=== PATIENT | female | born 1940 | race Caucasian/White ===

== ENCOUNTER 2016-04-21 16:37 | Emergency (ER) | payer MEDICARE, MEDICAID, OTHER ==
[~2016-04-21] VITALS: Ht 167.6 cm; Wt 60.0 kg
[~2016-04-21 16:37] MED LIST: CALC500T21 PO; DIPH1TAB36 PO; EXEL1.5C OR; RIVA1.5 PO; ROSU5 OR; SERT50 PO; ZOLO25TA PO
[2016-04-21 18:12] VITALS: BP 208/92; PULSE 97; RESP 18; TEMP 98.2; O2SAT 99
[2016-04-21] MEDS ORDERED: TYLE325T PO (18:14)
[2016-04-21] MEDS ORDERED: ZOLO100T PO (18:14)
[2016-04-21] MEDS ORDERED: MELA5CAP2 PO (18:14)
[2016-04-21] MEDS ORDERED: ARIC10TA PO (18:14)
[2016-04-21] MEDS ORDERED: OSCA200T PO (18:14)
[2016-04-21] MEDS ORDERED: MEMA28CA PO (18:14)
[2016-04-21] MEDS ORDERED: ACETAMINOPHEN 325 MG TAB PO ONE ×2 (18:30→20:30)
[2016-04-21 18:46] LABS: AUTOMATED NEUTROPHIL # 4.3 TH/MM3 (1.8-7.7); BASOPHIL # 0.1 TH/MM3 (0-0.2); BASOPHIL % 1.1 % (0.0-2.0); EOSINOPHIL # 0.2 TH/MM3 (0-0.4); EOSINOPHIL % 2.4 % (0.0-4.0); HEMATOCRIT 39.9 % (35.0-46.0); HEMO FLAGS DIFF FINAL; LYMPH % 22.9 % (9.0-44.0); LYMPHOCYTE # 1.5 TH/MM3 (1.0-4.8); MEAN CELL VOLUME 93.6 FL (80.0-100.0); MEAN CORPUSCULAR HEMOGLOBIN 31.5 PG (27.0-34.0); MEAN CORPUSCULAR HGB CONC 33.6 % (32.0-36.0); MONO % 8.5 % (0.0-8.0); NEUT % 65.1 % (16.0-70.0); PLATELET COUNT 224 TH/MM3 (150-450); RED BLOOD COUNT 4.26 MIL/MM3 (4.00-5.30); RED CELL DISTRIBUTION WIDTH 13.4 % (11.6-17.2); WHITE BLOOD COUNT 6.6 TH/MM3 (4.0-11.0)
--- NOTE | 2016-04-21 19:36 | PD ---
HPI Chief Complaint: Psychiatric Symptoms Time Seen by Provider: 19:33 Travel History International Travel<30 days: No Contact w/Intl Traveler<30days: No Traveled to known affect area: No History of Present Illness HPI 75-year-old female that presents to the ED for evaluation of psychiatric illness. Patient has a chronic history of dementia and she is currently living at a [facility]. Patient appears to be very demented. She states that she doesn't remember what she is here that she's having issues secondary to kidney pain and stating that it only many medications at the facility where she stays at. Per fci paperwork she has been taking her medications and she does have a chronic history of dementia. I actually saw this patient in November for evaluation of Pal[place] act after she was found roaming around the neighborhood with no idea who she was. She does appear to be a poor historian. She does not appear to be aggressive. Per Palomo act patient was found to be wandering around the area of the fci. She denies any chest pain. She states that she has some kidney pain which is chronic. Per patient she does have a slight headache today. She takes no blood pressure medications. No hallucinations. No suicidal or homicidal ideation. PFSH Past Medical History Medical History: Unable to Obtain Alzheimer's Disease: Yes Cerebrovascular Accident: Yes Diabetes: No Patient Takes Glucophage: No Diminished Hearing: Yes Genitourinary: Yes (Per medical record recall) Neurologic: Yes Tetanus Vaccination: Unknown ?: Not Menopausal: Yes : 4 Para: 4 Past Surgical History Surgical History: Unable to Obtain Appendectomy: Yes Section: Yes Cholecystectomy: Yes Gynecologic Surgery: Yes (HYSTERECTOMY) Hysterectomy: Yes Social History Alcohol Use: No Tobacco Use: No Substance Use: No Allergies-Medications (Allergen,Severity, Reaction): Coded Allergies: Aspirin (Verified Allergy, Severe, Nausea/Vomiting, 11/28/15) Reported Meds & Prescriptions Reported Meds & Active Scripts Active Reported Zoloft (Sertraline HCl) 100 Mg Tab 100 Mg PO DAILY Tylenol (Acetaminophen) 325 Mg Tab 650 Mg PO Q6H PRN Oscal 500/200 D-3 (Calcium Carbonate-Vitamin D) 500-200 Mg-Unit Tab 1 Tab PO DAILY Namenda Xr (Memantine) 28 Mg Caper 28 Mg PO DAILY Melatonin 5 Mg Cap 2 Cap PO HS Aricept (Donepezil) 10 Mg Tab 10 Mg PO HS Crestor (Rosuvastatin Calcium) 5 Mg Tab 5 Mg OR DAILY Review of Systems ROS Limitations: Poor Historian Except as stated in HPI: all other systems reviewed are Neg Physical Exam Exam Limitations: Poor Historian Narrative GENERAL: SKIN: Warm and dry. HEAD: Atraumatic. Normocephalic. EYES: Pupils equal and round. No scleral icterus. No injection or drainage. ENT: No nasal bleeding or discharge. Mucous membranes pink and moist. Tongue is midline. No uvula deviation. NECK: Trachea midline. No JVD. CARDIOVASCULAR: Regular rate and rhythm. No murmurs, S3, S4. RESPIRATORY: No accessory muscle use. Clear to auscultation. Breath sounds equal bilaterally. GASTROINTESTINAL: Abdomen soft, non-tender, nondistended. Hepatic and splenic margins not palpable. MUSCULOSKELETAL: Extremities without clubbing, cyanosis, or edema. No obvious deformities. NEUROLOGICAL: Awake and alert. No obvious cranial nerve deficits. Motor grossly within normal limits. Five out of 5 muscle strength in the arms and legs. Normal speech. PSYCHIATRIC: Demented mood and affect; insight and judgment questionable secondary to dementia Data Data Last Documented VS Vital Signs Date Time Temp Pulse Resp B/P Pulse Ox O2 Delivery O2 Flow Rate FiO2 04/21/16 18:12 98.2 97 18 208/92 99 Room Air Orders Diet Regular Basic (04/21/16 Dinner) Complete Blood Count With Diff (04/21/16 16:57) Comprehensive Metabolic Panel (04/21/16 16:57) Urinalysis - C+S If Indicated (04/21/16 16:57) Drug Screen, Random Urine (04/21/16 16:57) Psych Screen (04/21/16 16:57) Tylenol (Acetaminophen) (04/21/16 18:17) Acetaminophen (Tylenol) (04/21/16 18:30) Labs Laboratory Tests Test 04/21/16 18:22 White Blood Count 6.6 TH/MM3 Red Blood Count 4.26 MIL/MM3 Hemoglobin 13.4 GM/DL Hematocrit 39.9 % Mean Corpuscular Volume 93.6 FL Mean Corpuscular Hemoglobin 31.5 PG Mean Corpuscular Hemoglobin 33.6 % Concent Red Cell Distribution Width 13.4 % Platelet Count 224 TH/MM3 Mean Platelet Volume 8.1 FL Neutrophils (%) (Auto) 65.1 % Lymphocytes (%) (Auto) 22.9 % Monocytes (%) (Auto) 8.5 % Eosinophils (%) (Auto) 2.4 % Basophils (%) (Auto) 1.1 % Neutrophils # (Auto) 4.3 TH/MM3 Lymphocytes # (Auto) 1.5 TH/MM3 Monocytes # (Auto) 0.6 TH/MM3 Eosinophils # (Auto) 0.2 TH/MM3 Basophils # (Auto) 0.1 TH/MM3 CBC Comment DIFF FINAL Differential Comment Acetaminophen Level LESS THAN 2.0 MCG/ML MDM Medical Decision Making Medical Screen Exam Complete: Yes Emergency Medical Condition: Yes Medical Record Reviewed: Yes Interpretation(s) CBC & BMP Diagram 04/21/16 18:22 Differential Diagnosis Dementia versus worsening dementia versusDepression versus suicidal ideation versus anxiety versus adjustment disorder versus mood disorder versus bipolar disorder versus schizophrenia versus paranoid disorder versus psychosis versus substance abuse versus alcohol abuse versus alcohol induced psychosis versus homicidality addition versus cutting versus personality disorder Narrative Course 75-year-old female that presents to the ED for evaluation of [place] act. Patient was properly examined and was found to have signs and symptoms consistent with appears to be psychiatric illness. Labs were drawn. Patient was medically cleared. Okay to be seen by psych. Mental health screening was discussed with the patient. Diagnosis Primary Impression: Dementia with behavioral disturbance Qualified Code: G30.8 - Alzheimer's dementia with behavioral disturbance, unspecified timing of dementia onset Robe Posadas Apr 21, 2016 19:36
[2016-04-21 19:51] LABS: ANION GAP 11 MEQ/L (5-15); AST (GOT) 21 U/L (15-37); BICARBONATE 23.3 MEQ/L (21.0-32.0); BLOOD UREA NITROGEN 14 MG/DL (7-18); CHLORIDE 105 MEQ/L (98-107); GLOMERULAR FILTRATION RATE 29 ML/MIN (>89); POTASSIUM 4.1 MEQ/L (3.5-5.1); SODIUM (NA) 139 MEQ/L (136-145)
[2016-04-21 19:53] LABS: BLOOD, URINE NEG (NEG); COMMENT (UR) CULT NOT INDICATED; CULTURE IF INDICATED CULT NOT INDICATED; GLUCOSE,URINE NEG (NEG); KETONE, URINE NEG (NEG); NITRITE,URINE NEG (NEG); SQUAMOUS EPITHELIAL CELL URINE <1 /hpf (0-5); URINE COLOR COLORLESS (YELLW/STRAW)
[2016-04-21 19:54] LABS: AMPHETAMINE, URINE NEG (NEG); BARBITURATES, URINE NEG (NEG); COCAINE, URINE NEG (NEG)
[2016-04-21 19:55] LABS: ALKALINE PHOSPHATASE 95 U/L (45-117); ALT (GPT) 28 U/L (10-53); TOTAL BILIRUBIN ADULT 0.3 MG/DL (0.2-1.0)
[2016-04-21 20:20] VITALS: BP 170/110; PULSE 95; RESP 18; O2SAT 97
--- NOTE | 2016-04-21 21:16 | RADRPT ---
EXAM DATE/TIME: 04/21/2016 20:42 [facility] COMPARISON: CT BRAIN W/O CONTRAST, November 24, 2013, 21:41. INDICATIONS : Altered mental status. Cephalgia. RADIATION DOSE: 30.01 CTDIvol (mGy) MEDICAL HISTORY : Cerebrovascular disease. Seizures. Dementia. SURGICAL HISTORY : None. ENCOUNTER: Initial ACUITY: 1 day PAIN SCALE: 0/10 LOCATION: cranial TECHNIQUE: Multiple contiguous axial images were obtained of the head. Using automated exposure control and adj ustment of the mA and/or kV according to patient size, radiation dose was kept as low as reasonably a chievable to obtain optimal diagnostic quality images. FINDINGS: CEREBRUM: Mild ventriculomegaly has developed. Chronic small/focal encephalomalacia right frontal vertex unchan ged. No evidence of midline shift, mass lesion, hemorrhage or acute infarction. No extra-axial flui d collections are seen. POSTERIOR FOSSA: The cerebellum and brainstem are intact. The 4th ventricle is midline. The cerebellopontine angle i s unremarkable. EXTRACRANIAL: The visualized portion of the orbits is intact. SKULL: The calvaria is intact. No evidence of skull fracture. CONCLUSION: 1. Mild ventriculomegaly, a change from 2013. Normal pressure hydrocephalus would be in the different ial. No mass seen. 2. Otherwise unchanged. Focal chronic encephalomalacia of the right frontal lobe. No bleed. Emmanuel Craig MD on April 21, 2016 at 21:13 Board Certified Radiologist. This report was verified electronically.
[2016-04-21 22:05] VITALS: BP 173/83; PULSE 77; RESP 18; O2SAT 98
[2016-04-22 02:00] VITALS: BP 127/58; PULSE 86; RESP 20; O2SAT 98
[2016-04-22 06:26] VITALS: BP 158/70; PULSE 85; RESP 18; O2SAT 97
[2016-04-22 11:00] VITALS: BP 113/55; PULSE 93; RESP 18
--- NOTE | 2016-04-22 11:53 | MB ---
cc: HERMINIO WHITAKER MD DATE OF CONSULTATION: 04/22/2016 HISTORY OF PRESENT ILLNESS This is a 75-year-old white female who was brought to the emergency room under [place] Act because she was depressed about having Alzheimer's disease and wants to kill herself. She lives in an assisted living facility. The patient does not even remember what brought her here. She claimed that she is not thinking about suicide or wanting to . She wants to live. She claimed that they are nice to her. Reportedly from the [facility] the patient has some lability of the affect. Sometimes she would be crying and feeling depressed but that could be part of the Alzheimer's. She has been taking Zoloft, Aricept and Namenda. We can suggest that if her emotional lability is too much then she may take some Risperdal 0.5 mg at bedtime and see if that helps her. The patient denies any active auditory or visual hallucinations. Denies any active suicidal ideation, intentions or plans. She was advised to go out with her daughter so she does not get lost and confused. She has been forgetful. She was very cooperative. BACKGROUND HISTORY The patient was born in [place]. She claimed that she has three brothers and two sisters. She was close to her parents. They were nice. Her childhood was described as happy. She denied any physical, verbal or sexual abuse growing up. 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 She got and her . She has three sons and one daughter. The patient denied any alcohol use and/or abuse. Denied any other psychiatric issues but she was hospitalized once here at [facility]. FAMILY HISTORY Negative for any emotional difficulty or nervous breakdown. MENTAL STATUS EXAMINATION This is a 75-year-old white female who looks about the same as her stated age, alert, oriented x2, cooperative, casually dressed. Her speech was slow without any evidence of loose associations or flight of ideas or pressured speech. Her mood was described as wanting to go back to her [facility]. Her affect was labile. She denied any suicidal and/or homicidal ideation, intentions or plans. She denied any active auditory or visual hallucinations. She seems to be of low average intelligence with poor recent and remote memory. Her insight is fair and her judgment seems to be okay on hypothetical situation. IMPRESSION Dementia without any behavior disturbance. PLAN/RECOMMENDATIONS At the present time the patient denies any suicidal and/or homicidal ideation, intentions or plans. Denies any auditory or visual hallucinations. Her memory is mildly impaired but no behavior or management problem reported. In my opinion the patient does not meet the Pal[place] Act criteria. I will lift the Palomo Act and discharge her back to her [facility]. She can work as an outpatient. We have explained to the staff at the [facility] and they are willing to accept her back. Herminio CASILLAS /11:22 AM 11:47 AM
[2016-04-22 15:01] VITALS: BP 109/69; PULSE 92; RESP 16; O2SAT 96
== END 2016-04-22 17:01 | disposition home or self-care (01) ==
LOC: NEDAMB 16:37 → NEPJ 04-22 17:01
DX: F03.91 Unspecified dementia, unspecified severity, with behavioral disturbance (principal); Z86.73 Personal history of transient ischemic attack (TIA), and cerebral infarction without residual deficits
CPT/HCPCS: 70450; 80053; 80307; 81001; 85025; 99284; G0480; 80329